=== PATIENT | male | born 1935 | race Caucasian/White ===

== ENCOUNTER 2016-12-12 10:10 | Emergency (ER) | payer MEDICARE ==
[2016-12-12 10:52] LABS: ALT (SGPT) 11 U/L (0-55); AST (SGOT) 13 U/L (5-34); Alkaline Phosphatase 108 U/L (40-150); Anion Gap 15 mmol/L (10-20); BUN (Urea Nitrogen) 34 mg/dL (8.4-25.7); Bilirubin, Total 0.9 mg/dL (0.2-1.2); CK (CPK) 102 U/L (30-200); Calc. Creatinine Clearance 0 mL/min (70-130); Carbon Dioxide 22 mmol/L (23-31); Chloride 109 mmol/L (98-107); Estimated GFR-MDRD 37; Globulin 3.7 g/dL (2.4-3.5); Lipase 58 U/L (8-78); Protein, Total 7.8 g/dL (5.8-8.1)
[2016-12-12 10:53] LABS: #Eosinphils 0.1 thou/uL (0.0-0.7); #Lymphocytes 1.5 thou/uL (1.20-3.40); #Monocytes 0.7 thou/uL (0.11-0.59); #Neutrophils 4.1 thou/uL (1.40-6.50); %Basophils 0.7 % (0.0-1.0); %Eosinophils 2.2 % (0.0-10.0); %Monocytes 11.1 % (0.0-10.0); Hematocrit 36.6 % (42.0-52.0); Mean Platelet Volume 7.5 fL (7.4-10.4); Troponin I 0.014 ng/mL (< 0.028); White Blood Cell (WBC) Count 6.5 thou/uL (4.8-10.8)
[2016-12-12 10:54] LABS: Prothrombin Time 18.6 SEC (12.0-14.7)
[2016-12-12 11:13] LABS: Anisocytosis SLIGHT = 6-15 cells (100X) (0-5/hpf)
--- NOTE | 2016-12-12 13:52 | PICIS ---
[facility] EMERGENCY RECORD COMMUNICATIONS (11:00 LGIB) COMMUNICATIONS: Critical lab value, received at 1100, received from madhav, Critical lab result: glucose 57, given to dr liu, results read back and verified. TRIAGE (MonDec 12, 2016 10:20 LGIB) PATIENT: NAME: Matt Flower, AGE: 81, GENDER: male, : Sat 1935, TIME OF GREET: MonDec 12, 2016 10:11, PREFERRED LANGUAGE: Italian, ETHNICITY: Not or , ECODE BILLING MAP: [facility], SSN: [id number], Zip Code: [address], KG WEIGHT: 72.12, PHONE: , , , PERSON ID: [id number], PAYMENT: [place] [employer], PCP: MD Grayson Kyle. (MonDec 12, 2016 10:20 LGIB) COMPLAINT: afib RVR. (MonDec 12, 2016 10:20 LGIB) ADMISSION: URGENCY: 2 Emergent, ADMISSION SOURCE: Home, TRANSPORT: CAR, BED: TRIAGE. (MonDec 12, 2016 10:20 LGIB) SIRS SCORING: Heart Rate 55-109 (0), Temp range 96.8-101.1 (0), respiratory rate 12-24 (0), Mental Status altered: no (0), Total SIRS Score 0. (10:41 LGIB) PROVIDERS: TRIAGE NURSE: Tessa Hsu RN. (MonDec 12, 2016 10:20 LGIB) PREVIOUS VISIT ALLERGIES: No Known Allergies. (MonDec 12, 2016 10:20 LGIB) No Known Allergies. (10:46 LGIB) KNOWN ALLERGIES No Known Drug Allergies CURRENT MEDICATIONS warfarin: TABLET : Strength - 2.5 mg : ORAL Patient Dose: 2 tab(s) Oral.mon,mon,,sun, one tab tue,th,sat. (10:49 LGIB) Lyrica: CAPSULE : Strength - 150 mg : ORAL Patient Dose: 1 cap(s) Oral 3 times a day. (10:49 LGIB) furosemide: TABLET : Strength - 20 mg : ORAL Patient Dose: 1 tab(s) Oral once a day. (10:49 LGIB) allopurinol: TABLET : Strength - 300 mg : ORAL Patient Dose: 1 tab(s) Oral once a day. (10:49 LGIB) spironolactone: TABLET : Strength - 25 mg : ORAL Patient Dose: 1 tab(s) Oral once a day. (10:49 LGIB) Lialda: TABLET, DELAYED RELEASE (ENTERIC COATED) : Strength - 1.2 gram : ORAL Patient Dose: 4 tab(s) Oral once a day (in the morning). (10:49 LGIB) PriLOSEC: &a-1R&a+25V*p+0X*q9580F*c202B*c15G*c2P*p-0X&a-25V&a+1R Name: Matt Flower : 1935 M81 MedRec: [id number] AcctNum: [id number] Prepared: Graciela Dec 15, 2016 10:53 by Interface Page 1 of 12 pMD [facility] RECORD CAPSULE,DELAYED RELEASE (ENTERIC COATED) : Strength - 20 mg : ORAL Patient Dose: 1 tab(s) Oral once a day. (10:49 LGIB) traMADol: TABLET : Strength - 50 mg : ORAL Patient Dose: 1 tab(s) Oral As Needed. (10:49 LGIB) Ecotrin Low Strength: TABLET, DELAYED RELEASE (ENTERIC COATED) : Strength - 81 mg : ORAL Patient Dose: 1 tab(s) Oral once a day. (10:50 LGIB) [place]: TABLET : Strength - 5 mg-325 mg : ORAL Patient Dose: 1 tab(s) Oral every 6 hours PRN. (10:50 LGIB) VITAL SIGNS VITAL SIGNS: BP: 121/90, Pulse: 105, Resp: 16 (Non-Labored), Pain: 0, O2 sat: 95 on Room Air, Time: 12/12/2016 10:15. (10:15 LGIB) BP: 109/83, Pulse: 98, Resp: 16 (Non-Labored), Pain: 0, O2 sat: 94 on Room Air, Time: 12/12/2016 10:30. (10:30 LGIB) Temp: 98.1 (Oral), Time: 12/12/2016 10:47. (10:47 LGIB) BP: 115/69, Pulse: 76, Resp: 16, Pain: 0, O2 sat: 100 on Room Air, Time: 12/12/2016 11:06. (11:06 LSMI) NURSING ASSESSMENT: CARDIOVASCULAR (10:25 LGIB) CONSTITUTIONAL: Complex assessment performed, Patient arrives ambulatory, Gait steady, History obtained from patient, Patient appears comfortable, Patient cooperative, Patient alert, Oriented to person, place and time, Skin warm, Skin dry, Skin normal in color, Mucous membranes pink, Mucous membranes moist, Patient is well-groomed, Patient complains of afib rvr, patient was seen in primary care physician's office for evaluation of feeling weak. Patient states that he has been having episodes of diarrhea that began yesterday. Patient was found to be in afib with RVR at the clinic but patient is not symptomatic. Patient may not be taking his afib medication since it is not amongst his medicines. Patient states that he is not sure about all his medications and that his manages it for him. PAIN: Patient rates pain as 0 out of 10. CARDIOVASCULAR: Cardiovascular assessment findings include heart rate, tachycardic, Rate 105-115, Heart rhythm, atrial fibrillation with rapid ventricular response, Left radial pulse +3(easily palpated, considered normal), Right radial pulse +3(easily palpated, considered normal), Left dorsalis pedis pulse +3(easily palpated, considered normal), Right dorsalis pedis pulse +3(easily palpated, considered normal), Notes: palpated pulse (radial) is irregular but strong. RESPIRATORY/CHEST: Breath sounds clear, Respiratory assessment findings include respiratory effort easy, Respirations regular, Conversing normally, Neck and chest exam findings include trachea midline, Chest expansion equal, Chest movement symmetrical, no signs of distress, no retractions noted, no cyanosis, no associated cough &a-1R&a+25V*p+0X*a5315Q*c202B*c15G*c2P*p-0X&a-25V&a+1R Name: Matt Flower : 1935 M81 MedRec: [id number] AcctNum: [id number] Prepared: Graciela Dec 15, 2016 10:53 by Interface Page 2 of 12 pMD [facility] EM[facility] RECORD noted, no associated fever. SAFETY: Side rails up, Cart/Stretcher in lowest position, Call light within reach, Hospital ID band on. NURSING PROCEDURE: BEDSIDE RADIOLOGY (10:27 LGIB) BEDSIDE RADIOLOGY: Portable chest x-ray performed. NURSING PROCEDURE: CLOUD SERVICES ARCHITECT (10:21 LGIB) CLOUD SERVICES ARCHITECT: Patient placed on night monitor, Patient placed on non-invasive blood pressure monitor, Patient placed on continuous pulse oximetry. NURSING PROCEDURE: COMMUNICATIONS (11:16 LSMI) COMMUNICATIONS: Physician, dr liu called and consulted with dr grayson. NURSING PROCEDURE: DISCHARGE NOTE (11:52 LGIB) DISCHARGE: Patient discharged to home, in a wheelchair, driving self, unaccompanied, Summary of Care printed/ provided, Patient requested and was provided an electronic copy of Discharge Instructions, Discharge instructions given to patient, Simple or moderate discharge teaching performed, Prescriptions given and instructions on side effects given, Above person(s) verbalized understanding of discharge instructions and follow-up care, Patient treated and evaluated by physician. BELONGINGS: Belongings and valuables with patient at time of discharge include:, Belongings remain with patient, Valuables remain with patient. NURSING PROCEDURE: EKG CHART (10:20 LSMI) PATIENT IDENTIFIER: Patient actively involved in identification process, Patient's identity verified by patient stating name, Patient's identity verified by patient stating date, Patient's identity verified by hospital ID bracelet. EKG: EKG indicated for complaint of an irregular heart beat, 12 lead EKG performed on the left chest, done by nicolette hsu rn, first EKG, Notes: ekg done at 1018. FOLLOW-UP: After procedure, EKG for interpretation given to Dr. liu. NURSING PROCEDURE: IV (10:26 LGIB) IV SITE 1: IV therapy indicated for medication administration, IV established, to the right forearm, using a 20 gauge catheter, in one attempt, Saline lock established, Flushed with normal saline (mls): 10, Labs drawn at time of placement, labeled in the presence of the patient and sent to lab. NURSING PROCEDURE: NURSE NOTES NURSES NOTES: Notes: juice, pudding and a sandwich given to patient to raise blood glucose. (11:02 LGIB) &a-1R&a+25V*p+0X*v5160J*c202B*c15G*c2P*p-0X&a-25V&a+1R Name: Matt Flower : 1935 M81 MedRec: [id number] AcctNum: [id number] Prepared: Graciela Dec 15, 2016 10:53 by Interface Page 3 of 12 pMD [facility] EM[facility] RECORD Warm blanket given to patient, Patient is awaiting results. (10:35 LGIB) ORDER DETAILS Order Name: CLOUD SERVICES ARCHITECT ED, Status: Done, Time: 10:38 12/12/2016, User: LGIB, - Ordered for: DO Liu Matthew, - Entered by: DO Liu Matthew - MonDec 12, 2016 10:23, - Quantity: 1, Order Name: Cardiac Profile w/CKMB & Troponin - I, Status: Active, Time: 10:23 12/12/2016, User: MBRI, - Ordered for: DO Liu Matthew, - Entered by: DO Liu Matthew - MonDec 12, 2016 10:23, - Quantity: 1, Order Name: CBC with Differential, Status: Active, Time: 10:23 12/12/2016, User: MBRI, - Ordered for: DO Liu Matthew, - Entered by: DO Liu Matthew - MonDec 12, 2016 10:23, - Quantity: 1, Order Name: CK (CPK), Status: Active, Time: 10:23 12/12/2016, User: MBRI, - Ordered for: DO Liu Matthew, - Entered by: DO Liu Matthew - MonDec 12, 2016 10:23, - Quantity: 1, Order Name: Comprehensive Metabolic Panel, Status: Active, Time: 10:23 12/12/2016, User: MBRI, - Ordered for: DO Liu Matthew, - Entered by: DO Liu Matthew - MonDec 12, 2016 10:23, - Quantity: 1, Order Name: EKG 12 Lead in Emergency Room, Status: Active, Time: 10:23 12/12/2016, User: MBRI, - Ordered for: DO Liu Matthew, - Entered by: DO Liu Matthew - MonDec 12, 2016 10:23, - Quantity: 1, Order Name: ERRT Pulse Oximeter ER, Status: Active, Time: 10:23 12/12/2016, User: VIVIANA, - Ordered for: DO Liu Matthew, - Entered by: DO Liu Matthew - MonDec 12, 2016 10:23, - Quantity: 1, Order Name: Lipase, Status: Active, Time: 10:23 12/12/2016, User: VIVIANA, - Ordered for: DO Liu Matthew, - Entered by: DO Liu Matthew - MonDec 12, 2016 10:23, - Quantity: 1, Order Name: Protime with INR, Status: Active, Time: 10:23 12/12/2016, User: VIVIANA, - Ordered for: DO Liu Matthew, - Entered by: DO Liu Matthew - MonDec 12, 2016 10:23, - Quantity: 1, Order Name: SALINE LOCK, Status: Done, Time: 10:38 12/12/2016, User: &a-1R&a+25V*p+0X*o0592C*c202B*c15G*c2P*p-0X&a-25V&a+1R Name: Matt Flower Cezar : 1935 M81 MedRec: [id number] AcctNum: [id number] Prepared: [facility] Dec 15, 2016 10:53 by Interface Page 4 of 12 pMD [facility] EMERGENC[facility] RECORD LGIB, - Ordered for: DO Liu Matthew, - Entered by: DO Liu Matthew - MonDec 12, 2016 10:23, - Quantity: 1, Order Name: Urinalysis w/ Rflx Microscopic, Status: Active, Time: 10:23 12/12/2016, User: VIVIANA, - Ordered for: DO Liu Matthew, - Entered by: DO Liu Matthew - MonDec 12, 2016 10:23, - Quantity: 1, Order Name: XR Chest 1 View Portable, Status: Active, Time: 10:23 12/12/2016, User: VIVIANA, - Ordered for: DO Liu Matthew, - Entered by: DO Liu Matthew - MonDec 12, 2016 10:23, - Quantity: 1. MEDICATION ADMINISTRATION SUMMARY Drug Name: meTOPROLOL tartrate oral, Dose Ordered: 50 mg, Route: Oral, Status: Given, Time: 10:39 12/12/2016, Drug Name: diltiazem intravenous, Dose Ordered: 20 mg, Route: IV Push, Status: Given, Time: 10:32 12/12/2016, Drug Name: *sodium chloride 0.9 % intravenous, Dose Ordered: 500 mL, Route: IV Fluid Infusion, Status: Given, Time: 10:30 12/12/2016, *Additional information available in notes, Detailed record available in Medication Service section. MEDICATION SERVICE diltiazem intravenous: Order: diltiazem intravenous (diltiazem HCl) - Dose: 20 mg : IV Push Schedule: Now Ordered by: Kilo Liu DO Entered by: Kilo Liu DO MonDec 12, 2016 10:25 , Acknowledged by: Tessa Hsu RN MonDec 12, 2016 10:27 Documented as given by: Tessa Hsu RN MonDec 12, 2016 10:32 Patient, Medication, Dose, Route and Time verified prior to administration. IV SITE #1 IVP, initial medication, Slowly, Catheter placement confirmed via flush prior to administration, IV site without signs or symptoms of infiltration during medication administration, No swelling during administration, No drainage during administration, IV flushed after administration, Correct patient, time, route, dose and medication confirmed prior to administration, Patient advised of actions and side-effects prior to administration, Allergies confirmed and medications reviewed prior to administration, Patient in position of comfort, Side rails up, Cart in lowest position. : Follow Up : Decreased heart rate, _IV SITE #1:_. (10:39 LGIB) meTOPROLOL tartrate oral: Order: meTOPROLOL tartrate oral (metoprolol tartrate) - Dose: 50 mg : Oral Schedule: Now &a-1R&a+25V*p+0X*v9271C*c202B*c15G*c2P*p-0X&a-25V&a+1R Name: Matt Flower : 1935 M81 MedRec: [id number] AcctNum: [id number] Prepared: [facility] Dec 15, 2016 10:53 by Interface Page 5 of 12 D [facility] EMERGENCY RECORD Ordered by: Kilo Liu DO Entered by: Kilo Liu DO MonDec 12, 2016 10:25 , Acknowledged by: Tessa Hsu RN MonDec 12, 2016 10:27 Documented as given by: Latricia Lazo LVN MonDec 12, 2016 10:39 Patient, Medication, Dose, Route and Time verified prior to administration. Site: Medication administered P.O., Correct patient, time, route, dose and medication confirmed prior to administration, Patient advised of actions and side-effects prior to administration, Allergies confirmed and medications reviewed prior to administration, Patient in position of comfort, Side rails up, Cart in lowest position, Call light in reach. sodium chloride 0.9 % intravenous: Order: sodium chloride 0.9 % intravenous (0.9 % sodium chloride) - Dose: 500 mL : IV Fluid Infusion Notes: (Bolus) Ordered by: Kilo Liu DO Entered by: Kilo Liu DO MonDec 12, 2016 10:25 , Acknowledged by: Tessa Hsu RN MonDec 12, 2016 10:27 Documented as given by: Tessa Hsu RN MonDec 12, 2016 10:30 Patient, Medication, Dose, Route and Time verified prior to administration. IV SITE #1 IV fluids established for hydration, IV SITE #1 into right forearm, IV SITE #1 1st bag hung, amount 500ml hung, via primary tubing, Catheter placement confirmed via flush prior to administration, IV site without signs or symptoms of infiltration during medication administration, No swelling during administration, No drainage during administration, IV flushed after administration, Correct patient, time, route, dose and medication confirmed prior to administration, Patient advised of actions and side-effects prior to administration, Allergies confirmed and medications reviewed prior to administration, Patient in position of comfort, Side rails up, Cart in lowest position. : Follow Up : Response assessment performed, No signs or symptoms of allergic reaction noted, _IV SITE #1:_, IV fluid infusion discontinued, on MonDec 12, 2016 10:59, 30 minutes, ., Total amount infused: 500ml. (10:58 LGIB) HPI WEAK-DIZZY (10:27 MBRI) CHIEF COMPLAINT: Patient presents for evaluation of weakness, Patient presents for evaluation of 81 yo male presents from his PMD office this am with complaints of feeling generally weak. He states that this started yesterday along with diarrhea last night. He has gone to bathroom several times this am. He was noted to have afib with RVR in the clinic. He does have a hx of afib and takes coumadin, metoprolol and cardizem for this according to his med list. However, amongst his medications I don't see the metoprolol or the Cardizem this am. He states having some lightheadedness at times. Denies abd or CP. His breathing is similar to his usual with some intermittent MOE. No other changes &a-1R&a+25V*p+0X*p0127Z*c202B*c15G*c2P*p-0X&a-25V&a+1R Name: Matt Flower : 1935 M81 MedRec: [id number] AcctNum: [id number] Prepared: [facility] Dec 15, 2016 10:53 by Interface Page 6 of 12 D [facility] EMERGENCY RECORD reported. HISTORIAN: History provided by patient, History provided by patient's caregiver. LOCATION: Symptoms are generalized. QUALITY: Patient is alert and oriented to person, place and time, Elgin coma score is 15. SEVERITY: Maximum severity of symptoms moderate. TIME COURSE: Gradual onset of symptoms, There has been no change in the patient's symptoms over time, are intermittent. ASSOCIATED WITH: No associated chest pain, No associated chills, No associated ear pain, No associated fever, No associated gait disturbance, No associated headache, No associated nausea, No associated palpitations, No associated vomiting, No associated visual changes, No associated upper respiratory infection, Denies any other complaints. EXACERBATED BY: Patient's condition exacerbated by nothing. RELIEVED BY: Patient's condition relieved by nothing. ROS CONSTITUTIONAL: Negative constitutional review of systems, Historian denies chills, denies fever. (11:41 MBRI) EYES: Negative eye review of systems. (11:41 MBRI) ENT: Historian denies rhinorrhea, denies sore throat. (11:41 MBRI) CARDIOVASCULAR: Historian denies chest pain, no radiation, Historian reports dyspnea on exertion, denies orthopnea, denies paroxysmal nocturnal dyspnea, denies syncope, denies palpitations. (11:41 MBRI) RESPIRATORY: Historian denies cough, denies shortness of breath. (11:41 MBRI) GI: Historian denies abdominal pain, reports anorexia, denies constipation, reports diarrhea, denies nausea, denies vomiting. (11:41 MBRI) GENITOURINARY MALE: Negative genitourinary review of systems. (11:41 MBRI) MUSCULOSKELETAL: Historian denies injury, Denies any musculoskeletal pain. (11:41 MBRI) SKIN: Negative skin review of systems, Historian denies skin changes. (11:41 MBRI) NEUROLOGIC: Negative neurologic review of systems, Historian denies dizziness, denies focal weakness, denies headache, denies paresthesias, denies vertigo, denies focal weakness, Historian denies sensory changes. (11:41 MBRI) HEMO/LYMPHATIC: Historian reports abnormal blood clotting, reports easy bruising. (11:42 MBRI) PAST MEDICAL HISTORY (10:46 LGIB) MEDICAL HISTORY: Notes: afib, neuropathy, gout, RBKA,, Past medical history includes cardiac history, congestive heart failure, Past medical history includes gastrointestinal disease, diverticulitis, gastroesophageal reflux disease, Past medical history &a-1R&a+25V*p+0X*j5889B*c202B*c15G*c2P*p-0X&a-25V&a+1R Name: Matt Flower : 1935 M81 MedRec: [id number] AcctNum: [id number] Prepared: Graciela Dec 15, 2016 10:53 by Interface Page 7 of 12 pMD [facility] EM[facility] RECORD includes history of hyperlipidemia, high cholesterol, Past medical history includes history of hypertension. verified 12/12/16. MALE SURGICAL HISTORY: RBKA, MITRAL VALVE SURGERY, CARDIAC STENTS, LEFT OPEN TIBFIB,, Surgical history of amputation to, right lower extremity, Surgical history of orthopedic surgery, LEFT TIBFIB, Date of surgery 2014. verified 12/12/16. PSYCHIATRIC HISTORY: No previous psychiatric history. verified 12/12/16. SOCIAL HISTORY: Patient denies alcohol use, Patient denies drug use, Patient has no smoking history. verified 12/12/16. PHYSICAL EXAM (11:41 MBRI) CONSTITUTIONAL: Vital Signs Reviewed, Nursing notes reviewed. HEAD: Head exam included findings of head atraumatic, normocephalic. EYES: Eye exam included findings of eyelids normal to inspection, Pupils equally round and reactive to light, Extraocular muscles intact. ENT: Mouth exam normal, Nose exam normal, Pharynx exam normal, not injected. Some bleeding from an external superficial wound of the outer ear. controlled at this time. NECK: Neck exam normal, Neck exam included findings of normal range of motion, Trachea midline. RESPIRATORY CHEST: Respiratory exam included findings of no respiratory distress, Breath sounds clear, No wheezing, No rales, No rhonchi. CARDIOVASCULAR: Cardiovascular exam included findings of, rate tachycardic, rhythm irregularly irregular, Heart sounds normal, Carotids normal, Femoral pulses normal, Right BKA. ABDOMEN MALE: Abdominal exam included findings of abdomen nontender, Bowel sounds normal, no distension, no peritoneal signs, no rigidity, no guarding, no rebound. BACK: Back exam included findings of normal inspection, no tenderness. UPPER EXTREMITY: Upper extremity exam included findings of inspection normal, Range of motion normal, Motor strength normal, Radial pulse normal, no cyanosis, no clubbing, no edema. LOWER EXTREMITY: Lower extremity exam included findings of inspection normal, Range of motion normal, Motor strength normal, Pedal pulse normal, no cyanosis, no clubbing, no edema. NEURO: Neuro exam findings include patient oriented to person, place and time, Speech normal, Gait normal. SKIN: Skin exam included findings of skin warm, dry, and normal in color. LAB INTERPRETATION (11:44 MBRI) INTERPRETATION: I reviewed the lab results. EVENTS &a-1R&a+25V*p+0X*r0786L*c202B*c15G*c2P*p-0X&a-25V&a+1R Name: Matt Flower : 1935 M81 MedRec: [id number] AcctNum: [id number] Prepared: [facility] Dec 15, 2016 10:53 by Interface Page 8 of 12 pMD [facility] EM[facility] RECORD TRANSFER: Triage to Emergency Triage. (MonDec 12, 2016 10:20 LGIB) Emergency Triage to Emergency Room -01. (10:20 LGIB) Removed from Emergency Emergency Room -01. (11:52 LGIB) EKG INTERPRETATION (10:32 MBRI) 12 LEAD EKG INTERPRETATION: 12 lead EKG interpreted by Emergency Department Physician at time of study, 12 lead EKG shows, atrial fibrillation with rapid ventricular response, Rate (beats per minute): 98-115, with unifocal premature ventricular complexes, Conduction with, incomplete right bundle branch block, ST, NS changes noted. No acute STEMI., Barry, left, Other findings include:, prolonged QTc. O2SAT INTERPRETATION (11:44 MBRI) O2SAT: Oxygen saturation interpretation: Normal. DOCTOR NOTES RE-EVALUATION: Routine re-evaluation, after administration of IV fluids, Routine re-evaluation, after observation, Routine re-evaluation, after administration of, The patient's condition has improved, HR normalized after meds and fluids. Discussed case with his PMD Dr Grayson, reg findings and his follow-up. They will place refills for his rate control meds, rec no changes to his Coumadin and he has Cardiology follow-up scheduled in the next week or two. (11:44 MBRI) TEXT: the patients initial eval shows only some slight tachy with rates in the low 100's to 117 range. We will start with some small fluid bolus given the diarrhea and provide some rate control meds for him. I suspect that he may not be on his normal rate control meds, either that or he forgot them at home this am. He appears stable at this time. (10:31 MBRI) Pt evaluated at this time and appears stable. No findings to suggest sig illness or issue requiring hospitalization or further intervention at this time. Plan of care discussed with pt and questions answered. Pt was informed of reasons for follow-up and return and they stated understanding. Pt is stable for d/c home at this time. (11:46 MBRI) PROBLEM LIST No recorded problems DIAGNOSIS (11:27 MBRI) FINAL: PRIMARY: UNSPECIFIED ATRIAL FIBRILLATION, ADDITIONAL: DEHYDRATION, diarrhea, renal insufficiency. DISPOSITION PATIENT: Disposition Type: Discharge, Disposition: *Discharge Home, Condition: Improved. (11:27 MBRI) &a-1R&a+25V*p+0X*n0236O*c202B*c15G*c2P*p-0X&a-25V&a+1R Name: Matt Flower : 1935 M81 MedRec: [id number] AcctNum: [id number] Prepared: MonDec 15, 2016 10:53 by Interface Page 9 of 12 pMD [facility] Patient left the department. (11:52 LGIB) INSTRUCTION (11:29 MBRI) DISCHARGE: ATRIAL FIBRILLATION, DEHYDRATION (6Y-ADULT), RENAL INSUFFICIENCY, DIARRHEA, VIRAL (6Y-ADULT). FOLLOWUP: MD Ac, [place], Family Practice, [address] [facility] [id number], , Luiz Rivera, [place], Cardiology, [facility] [place] [id number], , Follow up with Primary Care Physician in 5 days, Follow up with Specialist as scheduled. SPECIAL: Please return for any further issues or concerns, we would be happy to see you. We hope you feel better soon. Follow-up with your PCP Tylenol or Advil for Pain. PRESCRIPTION No recorded prescriptions IMAGING *EKG: Image captured from scanner. (10:41 LSMI) CLINIC NOTES: Image captured from scanner. (11:32 LSMI) Page 2 added. Image captured from scanner. (11:33 LSMI) *SUPPLY CHARGE SHEET: Image captured from scanner. (12:21 LGIB) ADMIN (MonDec 15, 2016 10:46 MBRI) DIGITAL SIGNATURE: DO Liu Matthew. RESULTS LABORATORY: CBC with Differential Collection DT: MonDec 12, 2016 10:29, White Blood Cell (WBC) Count 6.5 thou/uL, Range (4.8-10.8), *Red Blood Cell (RBC) Count 3.80 - L mill/uL, Range (4.70-6.10), *Hemoglobin 13.1 - L g/dL, Range (14.0-18.0), *Hematocrit 36.6 - L %, Range (42.0-52.0), *Mean Corpuscular Volume 96.2 - H fl, Range (80.0-94.0), *Mean Corpuscular Hemoglobin 34.5 - H pg, Range (27.0-31.0), Mean Corpuscular HGB CONC 35.9 g/dL, Range (32.0-36.0), *RBC Distribution Width 17.2 - H %, Range (11.5-14.5), Platelet Count 204 thou/uL, Range (130-400), Mean Platelet Volume 7.5 fL, Range (7.4-10.4), %Neutrophils 63.1 %, Range (42.0-75.0), %Lymphocytes 22.9 %, Range (21.0-51.0), *%Monocytes 11.1 - H %, Range (0.0-10.0), %Eosinophils 2.2 %, Range (0.0-10.0), %Basophils 0.7 %, Range (0.0-1.0), #Neutrophils 4.1 thou/uL, Range (1.40-6.50), #Lymphocytes 1.5 thou/uL, Range (1.20-3.40), *#Monocytes 0.7 - H thou/uL, Range (0.11-0.59), &a-1R&a+25V*p+0X*o8091D*c202B*c15G*c2P*p-0X&a-25V&a+1R Name: Matt Flower : 1935 M81 MedRec: [id number] AcctNum: [id number] Prepared: Graciela Dec 15, 2016 10:53 by Interface Page 10 of 12 [facility] EMERGENCY RECORD #Eosinphils 0.1 thou/uL, Range (0.0-0.7), #Basophils 0.0 thou/uL, Range (0.0-0.2). (10:54 [facility]) Lipase Collection DT: MonDec 12, 2016 10:33, Lipase 58 U/L, Range (8-78). (10:54 [facility]) CK (CPK) Collection DT: MonDec 12, 2016 10:33, CK (CPK) 102 U/L, Range (30-200). (10:54 MB[facility]) Comprehensive Metabolic Panel Collection DT: MonDec 12, 2016 10:33, Sodium 142 mmol/L, Range (136-145), Potassium 4.1 mmol/L, Range (3.5-5.1), *Chloride 109 - H mmol/L, Range (98-107), *Carbon Dioxide 22 - L mmol/L, Range (23-31), Anion Gap 15 mmol/L, Range (10-20), *BUN (Urea Nitrogen) 34 - H mg/dL, Range (8.4-25.7), *Creatinine 1.78 - H mg/dL, Range (0.7-1.3), Estimated GFR-MDRD 37 , Reference Range for Estimated GFR: Greater than 90, mL/min/1.73 m2 NOTE: The MDRD equation has not been validated for use, with the elderly (over 70 years of age), women, patients with, serious comorbid condition or persons with extremes of body size, muscle, mass, or nutritional status. , Calcium 9.0 mg/dL, Range (7.8-10.44), Bilirubin, Total 0.9 mg/dL, Range (0.2-1.2), Protein, Total 7.8 g/dL, Range (5.8-8.1), NOTE: Plasma values are generally 0.3 to 0.5 g/dL higher than serum values, due to the presence of fibrinogen. , Albumin 4.1 g/dL, Range (3.4-4.8), *Globulin 3.7 - H g/dL, Range (2.4-3.5), *Alb/Glob Ratio 1.1 - L g/dL, Range (1.2-2.2), Alkaline Phosphatase 108 U/L, Range (40-150), AST (SGOT) 13 U/L, Range (5-34), ALT (SGPT) 11 U/L, Range (0-55). (10:54 MBRI) Lipase Collection DT: MonDec 12, 2016 10:33, Lipase 58 U/L, Range (8-78). (11:13 [facility]) CK (CPK) Collection DT: MonDec 12, 2016 10:33, CK (CPK) 102 U/L, Range (30-200). (11:13 [facility]) Comprehensive Metabolic Panel Collection DT: MonDec 12, 2016 10:33, Critical Call Chemistry CALLED GLUCOSE TO , [email or web address] @1101 ON , 12/12/2016 , (READBACK) , Refer to Critical Value designated by an *L or *H , Sodium 142 mmol/L, Range (136-145), Potassium 4.1 mmol/L, Range (3.5-5.1), *Chloride 109 - H mmol/L, Range (98-107), *Carbon Dioxide 22 - L mmol/L, Range (23-31), Anion Gap 15 mmol/L, Range (10-20), *BUN (Urea Nitrogen) 34 - H mg/dL, Range (8.4-25.7), *Creatinine 1.78 - H mg/dL, Range (0.7-1.3), Estimated GFR-MDRD 37 , Reference Range for Estimated GFR: &a-1R&a+25V*p+0X*m1828W*c202B*c15G*c2P*p-0X&a-25V&a+1R Name: Matt Flower Cezar : 1935 M81 MedRec: [id number] AcctNum: [id number] Prepared: MonDec 15, 2016 10:53 by Interface Page 11 of 12 [facility] Greater than 90, mL/min/1.73 m2 NOTE: The MDRD equation has not been validated for use, with the elderly (over 70 years of age), women, patients with, serious comorbid condition or persons with extremes of body size, muscle, mass, or nutritional status. , *Glucose 57 - *L mg/dL, Range (83-110), Critical value!, Calcium 9.0 mg/dL, Range (7.8-10.44), Bilirubin, Total 0.9 mg/dL, Range (0.2-1.2), Protein, Total 7.8 g/dL, Range (5.8-8.1), NOTE: Plasma values are generally 0.3 to 0.5 g/dL higher than serum values, due to the presence of fibrinogen. , Albumin 4.1 g/dL, Range (3.4-4.8), *Globulin 3.7 - H g/dL, Range (2.4-3.5), *Alb/Glob Ratio 1.1 - L g/dL, Range (1.2-2.2), Alkaline Phosphatase 108 U/L, Range (40-150), AST (SGOT) 13 U/L, Range (5-34), ALT (SGPT) 11 U/L, Range (0-55). (11:13 [facility]) Protime with INR Collection DT: MonDec 12, 2016 10:29, See comment below , Anticoagulant? NONE Medical Necessity WARFARIN (COUMADIN) , *Prothrombin Time 18.6 - H SEC, Range (12.0-14.7), INR-International Normal Ratio 1.5 , ATTENTION: READ CAREFULLY , The, recommended therapeutic ranges for oral anticoagulant treatments are: , , Low Intensity: 1.5 - 2.0 Moderate Intensity: 2.0, - 3.0 High Intensity (1): 2.5 - 3.5 High, Intensity (2): 3.0 - 4.0 CRITICAL: >, 4.0 . (11:13 [facility]) Cardiac Profile w/CKMB & TropI Collection DT: MonDec 12, 2016 10:29, CKMB 2.1 ng/mL, Range (0-6.6), Troponin I 0.014 ng/mL, Range (< 0.028), Reference Range , 0.00 - 0.028 ng/mL Negative 0.029 - 0.29 ng/mL , Indeterminate Greater or Equal to 0.3 ng/mL Strongly suggests MA , . (11:13 MBRI) Rankin: LGIB=ANDRY Hsu Lauren LSMI=DEANGELO Lazo Leah MBRI=DO Liu Matthew &a-1R&a+25V*p+0X*n0684R*c202B*c15G*c2P*p-0X&a-25V&a+1R Name: Matt Flower Cezar : 1935 M81 MedRec: [id number] AcctNum: [id number] Prepared: MonDec 15, 2016 10:53 by Interface Page 12 of 12 [facility] MEDICATION RECON[facility]IL[facility]ATION You were seen in the Emergency Department on: MonDec 12, 2016 KNOWN ALLERGIES No Known Drug Allergies MEDICATIONS GIVEN WHILE IN THE EMERGENCY DEPARTMENT diltiazem intravenous (diltiazem HCl) - Dose: 20 milligram(s) : IV Push sodium chloride 0.9 % intravenous (0.9 % sodium chloride) - Dose: 500 milliliter(s) : IV Fluid Infusion meTOPROLOL tartrate oral (metoprolol tartrate) - Dose: 50 milligram(s) : Oral HOME MEDICATIONS CONTINUE PRESCRIBED allopurinol : TABLET : Strength - 300 mg : ORAL Continue as prescribed Patient had been takin tab(s) Oral once a day. Ecotrin Low Strength : TABLET, DELAYED RELEASE (ENTERIC COATED) : Strength - 81 mg : ORAL Continue as prescribed Patient had been takin tab(s) Oral once a day. furosemide : TABLET : Strength - 20 mg : ORAL Continue as prescribed Patient had been takin tab(s) Oral once a day. Lialda : TABLET, DELAYED RELEASE (ENTERIC COATED) : Strength - 1.2 gram : ORAL Continue as prescribed Patient had been takin tab(s) Oral once a day (in the morning). Lyrica : CAPSULE : Strength - 150 mg : ORAL Continue as prescribed Patient had been takin cap(s) Oral 3 times a day. [place] : TABLET : Strength - 5 mg-325 mg : ORAL Continue as prescribed Patient had been takin tab(s) Oral every 6 hours PRN. &a-1R&a+25V*p+0X*x7279V*c202B*c15G*c2P*p-0X&a-25V&a+1R Name: Matt Flower : 1935 M81 MedRec: [id number] AcctNum: [id number] Prepared: MonDec 15, 2016 10:53 by Interface pMD [facility] MEDICATION RECONCILIATION PriLOSEC : CAPSULE,DELAYED RELEASE (ENTERIC COATED) : Strength - 20 mg : ORAL Continue as prescribed Patient had been takin tab(s) Oral once a day. spironolactone : TABLET : Strength - 25 mg : ORAL Continue as prescribed Patient had been takin tab(s) Oral once a day. traMADol : TABLET : Strength - 50 mg : ORAL Continue as prescribed Patient had been takin tab(s) Oral As Needed. warfarin : TABLET : Strength - 2.5 mg : ORAL Continue as prescribed Patient had been takin tab(s) Oral. Comment: mon,wed,frid,sun, one tab tue,th,sat. Notes from the emergency department please continue your metoprolol 50mg twice daily and Cardizem 120mg daily. Reviewed with patient Reviewed with PCP &a-1R&a+25V*p+0X*e5898S*c202B*c15G*c2P*p-0X&a-25V&a+1R Name: Matt Flower : 1935 M81 MedRec: [id number] AcctNum: [id number] Prepared: MonDec 15, 2016 10:53 by Interface pMD [facility]US[facility]
--- NOTE | 2016-12-12 20:00 | RAD ---
PORTABLE CHEST 12/12/2016 An AP portable film at 1026 hours is compared with an 09/20/2015 study. There is mild cardiac enlargement but no congestive failure. Both the right atrium and left atrium seem a bit prominent in size. The lungs are clear. Faint calcification is seen in the aortic arch. IMPRESSION: Mild cardiomegaly, including atrial enlargement, without findings of congestive change. POS: HOME
== END 2016-12-12 11:52 | disposition home or self-care (01) ==
LOC: BURERS 10:10
DX: I48.91 Unspecified atrial fibrillation (principal); E86.0 Dehydration; N28.9 Disorder of kidney and ureter, unspecified; I50.9 Heart failure, unspecified; K21.9 Gastro-esophageal reflux disease without esophagitis; E78.5 Hyperlipidemia, unspecified; E78.00 Pure hypercholesterolemia, unspecified; I10 Essential (primary) hypertension; Z79.01 Long term (current) use of anticoagulants; Z79.899 Other long term (current) drug therapy
CPT/HCPCS: 71010; 80053; 82553; 83690; 84484; 85025; 85610; 93005; 94760; 96374; J3490

== ENCOUNTER 2016-12-20 09:23 | Outpatient (CLI) | payer MEDICARE ==
[2016-12-20 10:29] LABS: ALT (SGPT) 13 U/L (0-55); AST (SGOT) 13 U/L (5-34); Alkaline Phosphatase 107 U/L (40-150); Anion Gap 15 mmol/L (10-20); BUN (Urea Nitrogen) 17 mg/dL (8.4-25.7); Bilirubin, Total 0.9 mg/dL (0.2-1.2); Calc. Creatinine Clearance 0 mL/min (70-130); Calcium 9.1 mg/dL (7.8-10.44); Carbon Dioxide 24 mmol/L (23-31); Chloride 107 mmol/L (98-107); Estimated GFR-MDRD 54; LDL Cholesterol, Calculated 73 mg/dL
== END 2016-12-20 09:24 | disposition home or self-care (01) ==
LOC: BURLAB 09:23
PROVIDERS: ATTEND Internal Medicine Cardiovascular Disease
DX: E78.00 Pure hypercholesterolemia, unspecified (principal)
CPT/HCPCS: 36415; 80053; 80061

== ENCOUNTER 2018-03-07 16:51 | Inpatient (IN) | payer MEDICARE ==
[2018-03-07 17:30] LABS: #Lymphocytes 0.6 thou/uL (1.20-3.40); #Monocytes 0.5 thou/uL (0.11-0.59); #Neutrophils 7.8 thou/uL (1.40-6.50); %Basophils 0.4 % (0.0-1.0); %Eosinophils 0.2 % (0.0-10.0); %Lymphocytes 7.1 % (21.0-51.0); %Monocytes 5.4 % (0.0-10.0); %Neutrophils 86.9 % (42.0-75.0); Bilirubin Negative (Negative); Blood, Urine Moderate (Negative); Clarity Slightly Cloudy (Clear); Glucose, Urine (Dipstick) Negative (Negative); Hemoglobin 13.8 g/dL (14.0-18.0); Leukocyte Small (Negative); Mean Corpuscular HGB CONC 34.7 g/dL (32.0-36.0); Mean Corpuscular Volume 92.1 fl (80.0-94.0); Mean Platelet Volume 6.2 fL (7.4-10.4); Nitrite Negative (Negative); Platelet Count 188 thou/uL (130-400); Protein, Urine (Dipstick) Negative (Neg-Trace); RBC Distribution Width 14.6 % (11.5-14.5); Red Blood Cell (RBC) Count 4.32 mill/uL (4.70-6.10); Urobilinogen 0.2 mg/dL (0.2-1.0)
[2018-03-07 17:35] LABS: INR-International Normal Ratio 2.5; PTT 36.4 SEC (22.9-36.1); Prothrombin Time 27.6 SEC (12.0-14.7)
[2018-03-07 17:36] LABS: Bacteria/HPF 4+ HPF (None Seen); Squamous Epithelial 0-3 HPF (0-3)
[2018-03-07 17:37] LABS: Transitional Epithelial 0-3 HPF (0-3)
[2018-03-07 17:44] LABS: ALT (SGPT) 16 U/L (8-55); AST (SGOT) 17 U/L (5-34); Albumin 4.2 g/dL (3.4-4.8); Alkaline Phosphatase 127 U/L (40-150); Anion Gap 14 mmol/L (10-20); BUN (Urea Nitrogen) 29 mg/dL (8.4-25.7); Bilirubin, Total 1.6 mg/dL (0.2-1.2); Calc. Creatinine Clearance 0 mL/min (70-130); Calcium 9.7 mg/dL (7.8-10.44); Carbon Dioxide 25 mmol/L (23-31); Chloride 101 mmol/L (98-107); Estimated GFR-MDRD 44; Globulin 3.7 g/dL (2.4-3.5); Glucose 111 mg/dL (83-110); Potassium 4.1 mmol/L (3.5-5.1); Protein, Total 7.9 g/dL (5.8-8.1); Sodium 136 mmol/L (136-145)
[2018-03-07] MEDS ORDERED: cefTRIAXone\\ROCEPHIN 1 GM VIAL ONE (18:08)
[2018-03-07] MEDS ORDERED: Water For Injection,Sterile 20 ML ONE (18:08)
[2018-03-07] MEDS ORDERED: Acetaminophen 325 MG TAB ONE (18:29)
--- NOTE | 2018-03-07 19:27 | CT ---
CT OF THE LUMBAR SPINE 03/07/[address] of the lumbar spine was performed for evaluation of low back pain in this patient who is on Coumadin. Axial slices were acquired, then coronal and sagittal reconstructions were done. There is mild curvature of the spine convexed right which might be positional. There is some motion a rtifact on the images which I believe is responsible for some of the unusual findings of some of the abdominal organs. No fracture was seen at any lumbar level. There is no dislocation or acute bony change. There was no sign of epidural fluid collections. Findings by level follow: T11-T12: No acute findings. T12-L1: No acute findings. L1-L2: No acute findings. L2-L3: Mild concentric bulge of the disc. Very slight ligamentous and facet hypertrophy without much impingement upon the thecal sac. L3-L4: Concentric bulging disc which is a little more prominent. The facet and ligamentous hypertroph y is a little more prominent. Nevertheless, the AP diameter of the canal is acceptable. L4-L5: Even more broad based bulging of the disc along with facet and ligamentous hypertrophy. This y ields a mild degree of central canal stenosis. The AP diameter of the canal at this level is still ab out 12 mm. L5-S1: Degenerated disc with mild concentric bulge. No gross neural impingement seen. Some degenerative changes are seen in the facet joints. There were no areas of bony destruction. The aorta and SMA in particular are densely calcified, as are the iliac arteries. It is difficult to asse ss this patient's kidneys due to what I believe is some breathing artifact on the images leading to t he upper pole of the right kidney appearing abnormally prominent. IMPRESSION: Degenerative change but no definite acute bony findings. POS: HOME
[2018-03-07] MEDS ORDERED: HYDROcodone/Acetaminophen 5/325 mg Tablet PO PRN ×2 (19:37→20:24)
[2018-03-07] MEDS ORDERED: traMADol HCl 50 MG TAB PO PRN (20:24)
--- NOTE | 2018-03-07 21:30 | RAD ---
PORTABLE CHEST: 03/07/18 An AP portable film at 1816 is compared with a 12/12/16 study. Cardiomegaly is about the same as before. The vessels are a little more prominent today and there are some patchy interstitial densities that may be the begins of edema. Borderline congestive change is possible. The findings are a little more prominent in the lung bases, so there should be followup ch est x-rays done to be sure that there not actually signs of basilar pneumonia beginning. IMPRESSION: Cardiomegaly with slight prominence of the vessels in interstitium. Early congestive change is possib le. See discussion above. POS: HOME
[2018-03-07] MEDS: Docusate 100 MG CAP PO SCH (21:39)
[2018-03-07] MEDS: Latanoprost 0.005% Ophth Soln 2.5 ml Bottle EA EYE SCH (21:39)
[2018-03-07] MEDS: Metoprolol Tartrate 25 MG TAB PO SCH (21:40)
[2018-03-08] MEDS: Pregabalin 75 MG CAP PO SCH ×5 (00:08→23:57)
[2018-03-08] MEDS: Ibuprofen 200 MG TAB PO PRN ×2 (00:09→17:24)
[2018-03-08] MEDS ORDERED: traMADol HCl 50 MG TAB PO PRN (08:00)
[2018-03-08] MEDS: Sodium Chloride 0.9% 1,000 ML IV SCH ×2 (08:28→21:45)
[2018-03-08] MEDS: Atorvastatin Calcium 40 MG TAB PO SCH (08:43)
[2018-03-08] MEDS: Allopurinol 100 MG TAB PO SCH (08:43)
[2018-03-08] MEDS: Metoprolol Tartrate 25 MG TAB PO SCH ×2 (08:43→21:44)
[2018-03-08] MEDS: Spironolactone 25 MG TAB PO SCH (08:43)
--- NOTE | 2018-03-08 08:43 | HP ---
DATE OF ADMISSION: 03/07/2018 CHIEF COMPLAINT: Flank pain. HISTORY OF PRESENT ILLNESS: An 82-year-old male who presented to [facility] Emergency Department yesterday afternoon with complaints of several weeks of left flank pain for which he was recently evaluated in the clinical setting; there he described flank pain that radiates down his left lower extremity and thus an MRI has been ordered with plans to have this done in [place] next 03/12/2018. He has a history of urinary retention for which he is followed by Dr. Ángel Worrell and reports to perform self catheterization each morning. In the emergency department, he was noted to have a urinary tract infection positive for 4+ bacteria, urine white blood cells and leukocyte esterase. His other labs were notably stable and near his baseline. He did develop a fever yesterday afternoon with a T-max of 101.4 with accompanying mild tachycardia. He was started empirically on IV Rocephin and admitted to the floor for treatment of pyelonephritis. PAST MEDICAL HISTORY: Peripheral vascular disease, atrial fibrillation, peripheral neuropathy, phantom pain status post right BKA, urinary retention, coronary artery disease. 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 SOCIAL HISTORY: Denies smoking, ETOH, or illicit drug use. He lives at home with his . ALLERGIES: No known drug allergies. FAMILY HISTORY: Noncontributory. CURRENT MEDICATIONS: Include latanoprost 0.005% 1 drop into affected eye each evening, Prilosec 20 mg p.o. daily, Colcrys 0.6 mg daily, aspirin 81 mg p.o. daily, Lialda 1.2 grams 4 tablets orally daily, Citracal plus vitamin D 250- 62.5 daily, Flomax 0.4 mg p.o. daily, Lasix 20 mg p.o. daily, metoprolol 50 mg p.o. b.i.d., diltiazem 120 mg p.o. daily, spironolactone 25 mg p.o. daily, allopurinol 300 mg p.o. daily, atorvastatin 40 mg p.o. at bedtime, cilostazol 100 mg p.o. b.i.d., Coumadin 5 mg Monday, , Monday and 2.5 mg the other days, Lyrica 150 mg p.o. q.i.d., tramadol 50 mg p.o. q.6 hours p.r.n. REVIEW OF SYSTEMS: General: Complains of fever yesterday afternoon. ENT: Denies sore throat, nasal drainage or congestion. Cardiovascular: Denies chest pain or palpitations. Respiratory: Denies shortness of breath or cough. Gastrointestinal: Denies abdominal pain, nausea, vomiting, diarrhea or constipation. Genitourinary: Denies dysuria. Does have a history of urinary retention. Musculoskeletal: Complains of intermittent joint pain. Dermatologic : Denies rash. Neurologic: Denies headache. Does complain of neuropathic pain affecting his lower extremities. IMAGING: On 03/07/2018, lumbar spine CT showed degenerative change, but no definite acute bony findings. On 03/07/2018, chest x-ray showed cardiomegaly with slight prominence of the vessels and interstitium, early congestive changes , possible. LABORATORY DATA: White blood cell count 9.0, H&H is 13.8 and 39.8, INR is 2.5. Electrolytes are within normal limits. Lactic acid 1.1, BUN 29, creatinine is 1.54. LFTs are normal. Urine as specified per HPI. PHYSICAL EXAMINATION: VITAL SIGNS: Temperature is 98.5, pulse is 86, respiratory rate is 16, oxygen is 96% on room air, blood pressure is 96/55. GENERAL: He is alert and oriented and in no acute distress. HEENT: Face: No asymmetry. Eyes: Conjunctivae are clear. Extraocular muscles are intact bilaterally without discharge. HEENT: Within normal limits. Oral cavity with slightly dry mucous membranes. NECK: Supple, without lymphadenopathy. CARDIOVASCULAR: Irregular rhythm. Normal S1, S2. RESPIRATORY: Clear to auscultation bilaterally without wheezes, rales or rhonchi. GASTROINTESTINAL: Soft, nontender to palpation, no masses. EXTREMITIES: Left leg with a well healed scar below the knee. Prior amputation of the left second and fifth toes, right BKA. SKIN: No rash. NEUROLOGICAL: Decreased sensation to the left foot. Positive straight leg raise in the seated position on the left. ASSESSMENT AND PLAN: 1. Pyelonephritis. Patient has been started empirically on IV Rocephin. This will be continued and we will follow up labs tomorrow morning and of his urine culture and blood culture. He is currently afebrile and appears to be improving. We will provide normal saline at 75 mL an hour for now. 2. Urinary retention. The patient self caths once a day and is followed by Dr. Ángel Worrell. He reports to have a followup appointment on 03/21 and approximately 1 in a couple of weeks. We will resume his usual Flomax dosing, so that self caths has most likely contributed to his current status. 3. Peripheral vascular disease, status post right-sided below-knee amputation. We will resume the patient's usual medications and appropriately treat his residual phantom pain. 4. Atrial fibrillation. The patient is currently therapeutic per his INR. We will resume his usual Coumadin dosing and follow up as appropriate. He is currently rate controlled. 5. Peripheral neuropathy, worsening issue in regards to the left lower extremity which will be further evaluated with MRI next week. We will continue the patient's usual dosing of Lyrica. 6. Prophylaxis. The patient is on Coumadin therapy for deep venous thrombosis prophylaxis and he is on gastrointestinal prophylaxis with his proton pump inhibitor, both of which will be continued. DISPOSITION: Will likely be able to transition the patient to p.o. antibiotics once the cultures are back with plan for discharge back to his home hopefully at that time. MTDD
[2018-03-08] MEDS: Furosemide 20 MG TAB PO SCH (08:44)
[2018-03-08] MEDS: Docusate 100 MG CAP PO SCH ×2 (08:44→21:44)
[2018-03-08] MEDS: Aspirin 81 mg Enteric Coated Tablet PO SCH (08:44)
[2018-03-08] MEDS: Calcium Carbonate + Vit D 500 MG TAB PO SCH (08:47)
[2018-03-08] MEDS: Cilostazol 100 MG TAB PO SCH ×2 (11:34→17:00)
[2018-03-08] MEDS: MESALAMINE PO SCH (11:39)
[2018-03-08] MEDS ORDERED: Warfarin Sodium 2.5 MG TAB PO SCH ×2 (17:00)
[2018-03-08] MEDS ORDERED: cefTRIAXone\\ROCEPHIN 1 GM in Sodium Chloride 0.9% 100 ML IVPB SCH (18:00)
[2018-03-08] MEDS: Latanoprost 0.005% Ophth Soln 2.5 ml Bottle EA EYE SCH (21:43)
[2018-03-09 05:56] LABS: INR-International Normal Ratio 2.2; Prothrombin Time 24.8 SEC (12.0-14.7)
[2018-03-09 05:57] LABS: #Basophils 0.1 thou/uL (0.0-0.2); #Eosinphils 0.2 thou/uL (0.0-0.7); #Monocytes 0.8 thou/uL (0.11-0.59); #Neutrophils 8.5 thou/uL (1.40-6.50); %Basophils 0.5 % (0.0-1.0); %Eosinophils 1.7 % (0.0-10.0); %Lymphocytes 17.6 % (21.0-51.0); %Monocytes 7.1 % (0.0-10.0); %Neutrophils 73.1 % (42.0-75.0); Hemoglobin 12.2 g/dL (14.0-18.0); Mean Corpuscular HGB CONC 35.7 g/dL (32.0-36.0); Mean Corpuscular Volume 92.6 fl (80.0-94.0); Platelet Count 155 thou/uL (130-400); RBC Distribution Width 14.4 % (11.5-14.5); Red Blood Cell (RBC) Count 3.69 mill/uL (4.70-6.10); White Blood Cell (WBC) Count 11.6 thou/uL (4.8-10.8)
[2018-03-09] MEDS: Pregabalin 75 MG CAP PO SCH ×2 (06:05→12:53)
[2018-03-09 06:06] LABS: ALT (SGPT) 16 U/L (8-55); AST (SGOT) 23 U/L (5-34); Albumin 3.3 g/dL (3.4-4.8); Alkaline Phosphatase 89 U/L (40-150); Anion Gap 14 mmol/L (10-20); BUN (Urea Nitrogen) 35 mg/dL (8.4-25.7); Bilirubin, Total 1.2 mg/dL (0.2-1.2); Calc. Creatinine Clearance 0 mL/min (70-130); Calcium 8.7 mg/dL (7.8-10.44); Carbon Dioxide 22 mmol/L (23-31); Chloride 104 mmol/L (98-107); Estimated GFR-MDRD 42; Globulin 3.1 g/dL (2.4-3.5); Glucose 93 mg/dL (83-110); Potassium 3.7 mmol/L (3.5-5.1); Protein, Total 6.4 g/dL (5.8-8.1); Sodium 136 mmol/L (136-145)
--- NOTE | 2018-03-09 09:04 | RAD ---
CHEST 2 VIEWS: Date: 03/09/18 COMPARISON: 03/07/18. HISTORY: Follow-up. Prominent pulmonary vessels. FINDINGS: Persistent cardiomegaly and atherosclerosis. There are sternotomy wires. Pulmonary vessels and hilum are normal. Blunting of the right costophrenic angle. Lungs are hyperinflated with chronic changes. P reviously noted pulmonary vascular prominence is less evident, as is interstitial prominence. There i s improved aeration of the lung bases. IMPRESSION: 1. Improved aeration of lung bases. 2. Persistent cardiomegaly and atherosclerosis. POS: [facility]
[2018-03-09] MEDS: Aspirin 81 mg Enteric Coated Tablet PO SCH (09:18)
[2018-03-09] MEDS: Allopurinol 100 MG TAB PO SCH (09:18)
[2018-03-09] MEDS: Metoprolol Tartrate 25 MG TAB PO SCH (09:19)
[2018-03-09] MEDS: Spironolactone 25 MG TAB PO SCH (09:22)
[2018-03-09] MEDS: Furosemide 20 MG TAB PO SCH (09:22)
[2018-03-09] MEDS: Cilostazol 100 MG TAB PO SCH (09:22)
[2018-03-09] MEDS: MESALAMINE PO SCH (09:23)
[2018-03-09] MEDS: Atorvastatin Calcium 40 MG TAB PO SCH (09:23)
[2018-03-09] MEDS: Docusate 100 MG CAP PO SCH (09:23)
[2018-03-09] MEDS: Calcium Carbonate + Vit D 500 MG TAB PO SCH (09:24)
[2018-03-09] MEDS: Sodium Chloride 0.9% 1,000 ML IV SCH (11:47)
[2018-03-09 14:54] VITALS: BP 110/61; TEMP 97.7
[2018-03-09] MEDS ORDERED: Warfarin Sodium 2.5 MG TAB PO SCH (17:00)
[2018-03-09] MEDS ORDERED: Warfarin Sodium 5 MG TAB PO SCH ×2 (17:00)
--- NOTE | 2018-03-10 00:10 | DIS ---
DATE OF ADMISSION: 03/07/2018 DATE OF DISCHARGE: 03/09/2018 ADMISSION DIAGNOSES: Pyelonephritis, history of urinary retention, peripheral vascular disease, stat us post right below-knee amputation, atrial fibrillation, peripheral neuropathy. PROCEDURES: On 03/07/2018, lumbar spine CT showed degenerative change, but no definite acute bony fi ndings. On 03/07/2018, chest x-ray showed cardiomegaly with slight prominence of the vessels in inte rstitium, early congestive changes possible. On 03/09/2018, chest x-ray showed improved aeration of lung bases, persistent cardiomegaly and atherosclerosis. HOSPITAL COURSE: An 82-year-old male with history of urinary retention, followed by Dr. Ángel hodgson for which he performs self-catheterization each morning, presented to [facility] Emergency [facility] ment with complaints of left flank pain and was subsequently found to have a urinary tract infection. Urinary cultures were obtained, and he was started empirically on IV Rocephin. The patient was not ably febrile at the time of his admission, which prompted the diagnosis of pyelonephritis. The patie nt was continued on his antibiotics and provided normal saline at 75 mL an hour for approximately 24 hours. He notably felt improved and remained afebrile while admitted on the floor. His urine cultur e isolated E. coli, and this showed to be sensitive to the Rocephin. He will be transitioned per thi s culture to a 1-week course of p.o. Bactrim. He reportedly feels back to his baseline with good ora l intake and output and is suitable for discharge to his home setting to complete the prescribed anti biotics. DISPOSITION: The patient will be discharged to his home where he lives with his . He will follo w up with myself in the clinic in a week and may followup with Dr. Worrell as planned next month. DISCHARGE MEDICATIONS: The patient will continue his usual medications other than the one new medica tion being Bactrim DS 800-160 mg p.o. b.i.d. x7 days.
== END 2018-03-09 15:20 | disposition home or self-care (01) | DRG 690 ==
LOC: BURERS 16:51 → BURMED 18:00
PROVIDERS: ADMIT Family Medicine; ATTEND Family Medicine
DX: N10 Acute pyelonephritis (principal); G62.9 Polyneuropathy, unspecified; I48.91 Unspecified atrial fibrillation; R33.9 Retention of urine, unspecified; B96.20 Unspecified Escherichia coli [E. coli] as the cause of diseases classified elsewhere; I25.10 Atherosclerotic heart disease of native coronary artery without angina pectoris; Z79.01 Long term (current) use of anticoagulants; Z79.899 Other long term (current) drug therapy; Z89.511 Acquired absence of right leg below knee; I49.3 Ventricular premature depolarization; Z95.5 Presence of coronary angioplasty implant and graft; Z89.422 Acquired absence of other left toe(s)
CPT/HCPCS: 36415; 51701; 71045; 71046; 72131; 80053; 81003; 81015; 83605; 85025; 85610; 85730; 87040; 87077; 87086; 87186; 96374; A4216; J0696